=== PATIENT | female | born 1995 | race Two or more races ===

== ENCOUNTER 2024-05-13 17:13 | Emergency (ER) | payer OTHER ==
[~2024-05-13] VITALS: Ht 157.5 cm; Wt 104.3 kg
[2024-05-13 17:38] VITALS: BP 128/70; TEMP 98; O2SAT 99
== END 2024-05-13 18:23 | disposition home or self-care (01) ==
LOC: ER 17:44
DX: S09.90XA Unspecified injury of head, initial encounter (principal); W20.8XXA Other cause of strike by thrown, projected or falling object, initial encounter; Y93.89 Activity, other specified; Y92.098 Other place in other non-institutional residence as the place of occurrence of the external cause; Y99.8 Other external cause status